=== PATIENT | female | born 1955 | race Two or more races ===

== ENCOUNTER 2019-04-03 07:37 | Emergency (ER) | payer MEDICAID ==
[~2019-04-03] VITALS: Ht 152.4 cm; Wt 54.4 kg
--- NOTE | 2019-04-03 07:50 | NUR ---
ED Nurse Note: Pt. brought in by ambulance due to dizziness. Per pt. her BS was in 500's this morning. Did bedside [id number] and PORFIRIOD made aware.
[2019-04-03 07:55] VITALS: BP 127/73
[2019-04-03 08:05] VITALS: BP 127/73
--- NOTE | 2019-04-03 08:05 | NUR ---
ED Nurse Note: Pt. stated she feels fine and not in any pain and verbalizes of wanting to go home. ERMD explained the risks and benefits of AMA. Pt. understood the risks and signed the AMA. Per pt. her is picking her up. Left with VSS. Removed the iv established by the paramedics. Pt. received 500NS given my paramedics..Pt. left with steady gait and AAOx4.
--- NOTE | 2019-04-03 08:28 | Emergency Room Report ---
History of Present Illness General Chief Complaint: Generalized Weakness Source: EMS Present Illness HPI Patient is a 63-year-old female presented after increased dizziness and generalized weakness acute onset. Patient a prior history of type 2 diabetes. She was noted to have blood sugar greater than 500 this morning. Patient stated she felt dizzy all over but this had resolved prior to arrival to the hospital. She reports taking aspirin daily. She denies any vomiting or diarrhea. She denies any chest discomfort. She denies any headache. She denies any ringing in her ears. Patient reports having an acute onset of movement sensation.Patient denies any current medical complaints. Allergies: Coded Allergies: No Known Allergies (Unverified , 04/03/19) Patient History Past Medical History: see triage record : 2 Para: 1 Reviewed Nursing Documentation: PMH: Agreed; PSxH: Agreed Nursing Documentation-PMH Past Medical History: No History, Except For Hx Hypertension: Yes Hx Diabetes: Yes Review of Systems All Other Systems: negative except mentioned in HPI Physical Exam Vital Signs Date Time Temp Pulse Resp B/P (MAP) Pulse Ox O2 Delivery O2 Flow Rate FiO2 04/03/19 07:31 98.4 124 18 151/82 (105) 100 General Appearance: well appearing, no apparent distress, alert, GCS 15 Head: normocephalic, atraumatic ENT: hearing grossly normal, normal voice, other - nystagmus Neck: full range of motion, supple Respiratory: lungs clear, normal breath sounds, no respiratory distress, speaking full sentences Cardiovascular #1: normal inspection Gastrointestinal: normal inspection, soft Musculoskeletal: normal inspection Neurologic: normal inspection, alert, oriented x3, responsive, tipple tender III-XII nml as tested, motor strength/tone normal, normal gait Psychiatric: mood/affect normal Skin: normal inspection, no rash Medical Decision Making Diagnostic Impression: Primary Impression: Episode of generalized weakness ER Course Patient presented for dizziness. Differential diagnosis include was not limited to labyrinthitis, benign positional vertigo, dehydration, myocardial infarction, aspirin toxicity. 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 Patient was advised risk benefits and alternatives of leaving AGAINST MEDICAL ADVICE and that she patient stated that she felt better and wanted to leave the hospital AGAINST MEDICAL ADVICE. Needed further work-up due to tachycardia and dizziness. Patient was advised to return if she change her mind. Last Vital Signs Date Time Temp Pulse Resp B/P (MAP) Pulse Ox O2 Delivery O2 Flow Rate FiO2 04/03/19 07:31 98.4 124 18 151/82 (105) 100 Status: improved Disposition: AGAINST MEDICAL ADVICE Condition: Unknown Lucio Zazueta MD April 03, 2019 08:28
== END 2019-04-03 08:05 | disposition left against medical advice (07) ==
LOC: EDBD 07:37 → EMR 08:03
DX: R53.1 Weakness (principal); R42 Dizziness and giddiness; E11.9 Type 2 diabetes mellitus without complications; I10 Essential (primary) hypertension; Z79.82 Long term (current) use of aspirin
CPT/HCPCS: 99282